=== PATIENT | female | born 1975 | race Caucasian/White ===

== ENCOUNTER → 2020-02-08 | Outpatient (CLI) | payer BC ==
[2020-02-08 09:33] VITALS: BP 127/68; PULSE 91; RESP 18; TEMP 98.4
--- NOTE | 2020-02-08 09:59 | P.HPOB ---
History of Present Illness H&P Date: 02/08/20 Chief Complaint: The patient is here for her routine gynecologic exam and ma mmogram. This is a 45-year-old with an LMP of 2011. The patient has been amenorrheic since her endometrial ablation in 2011. Her is status post vasectomy. The patient is without gynecologic complaints. She denies any significant hot flashes. Review of Systems The patient has gained 8 pounds over the last 2 years. She denies respiratory, cardiac, or G.I. problems. 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 Amenorrhea since her endometrial ablation. 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 She is currently working out of her home. She also helps care for her grandmother who lives nearby. - Past Family History Father Family Medical History: Hyperlipidemia Additional Family Medical History / Comment(s): Paternal grandmother had colon cancer. Mother Family Medical History: Hyperlipidemia Medications and Allergies Home Medications Medication Instructions Recorded Confirmed Type Acetaminophen [Tylenol] 500 mg PO Q4-6H PRN 02/08/20 02/08/20 History Allergies Allergy/AdvReac Type Severity Reaction Status Date / Time No Known Allergies Allergy Unverified 02/08/20 09:27 Exam Vital Signs Temp Pulse Resp BP Pulse Ox 02/08/20 09:28 98.4 F 91 18 127/68 97 Intake and Output 02/07/20 02/08/20 02/08/20 22:59 06:59 14:59 Other: Weight 82.554 kg Height 5 feet 5 inches, weight 182 pounds, BMI 30.3. This is a well-developed well-nourished white female who is alert and oriented times 3 in no acute distress. HEENT: Within normal limits. NECK: Supple without mass or thyromegaly. CHEST AND LUNGS: Clear to auscultation. HEART: Regular rate and rhythm. BREASTS: Are without mass or discharge. AXILLARY EXAM: Negative for adenopathy. BACK: Negative for CVA tenderness. ABDOMEN: Soft, nontender, without palpable masses. PELVIC EXAM: Normal external genitalia. Cervix and vagina appear normal. The cervix is multiparous. There is no unusual discharge. There is no evidence of prolapse. The uterus is midposition, nongravid size and nontender. There are no palpable adnexal masses or tenderness. RECTAL EXAM: negative for mass or tenderness and is negative for occult blood. EXTREMITIES: Nontender. IMPRESSION: 1. 45-year-old female whose is status post vasectomy with normal gynecologic exam. 2. Amenorrhea since her endometrial ablation in 2011. PLAN: 1. Pap smear was performed. 2. Self breast awareness was discussed with the patient. 3. Screening mammogram will be done today. 4. Osteoporosis prevention was discussed. I have stressed the importance of adequate calcium, vitamin D and regular exercise. Recommended amounts of calcium and vitamin D were also discussed. 5. She was advised to return in one year for her annual well woman exam.
--- NOTE | 2020-02-09 08:27 | MM ---
Reason for exam: screening (asymptomatic). Last mammogram was performed 2 years and 6 months ago. History: Patient history of other cancer. Physical Findings: A clinical breast exam by your physician is recommended on an annual basis and results should be correlated with mammographic findings. MG 3D Screening Mammo W/Cad Bilateral CC and MLO view(s) were taken. Prior study comparison: August 05, 2017, bilateral MG screening mammo w CAD. June 25, 2016, bilateral MG screening mammo w CAD. There are scattered fibroglandular densities. There is no discrete abnormality. No significant changes when compared with prior studies. ASSESSMENT: Negative, BI-RAD 1 RECOMMENDATION: Routine screening mammogram of both breasts in 1 year.
--- NOTE | 2020-02-15 17:11 | P.PN ---
Progress Note - Text Progress Note Date: 02/15/20 OUTPATIENT FOLLOW-UP NOTE TEST(S)/RESULTS: test results from 02/08/2020 include negative Pap smear and benign mammogram. METHOD OF NOTIFICATION: a message with these results was left on the patient's voice mail. PATIENT COMMENTS: DIAGNOSIS: negative Pap smear and benign mammogram. DISCUSSION: PLAN: the patient is to return in one year for her annual well woman exam.
== END | disposition home or self-care (01) ==
LOC: WWCWWP 09:19
PROVIDERS: ATTEND Obstetrics & Gynecology
DX: Z12.31 Encounter for screening mammogram for malignant neoplasm of breast (principal)
CPT/HCPCS: 77063; 77067

== ENCOUNTER → 2021-04-18 | Outpatient (CLI) | payer BC ==
[2021-04-18 11:15] VITALS: BP 126/85; PULSE 80; RESP 12; TEMP 98.3
--- NOTE | 2021-04-18 12:03 | P.HPOB ---
History of Present Illness H&P Date: 04/18/21 Chief Complaint: The patient is here for her routine gynecologic exam. This is a 46-year-old with an LMP of 2011. The patient is without gynecologic complaints. She has been amenorrheic since her endometrial ablation in 2011. She denies any significant hot flashes. Her is status post vasectomy. Review of Systems The patient's weight has been stable over the last year. She denies respiratory, cardiac, or G.I. problems. Past Medical History Past Medical History: Cancer, Hyperlipidemia Additional Past Medical History / Comment(s): Basal cell skin cancer on her forehead. 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 Amenorrhea since her endometrial ablation. History of Any Multi-Drug Resistant Organisms: None Reported Past Surgical History: Cholecystectomy, Uterine Ablation Additional Past Surgical History / Comment(s): Skin cancer removed from forehead. Endometrial ablation in 2011. Past Psychological History: No Psychological Hx Reported Smoking Status: Never smoker Past Alcohol Use History: Occasional (5 per week) Past Drug Use History: None Reported Additional History: She has been since 1998 and works for a [employer]. - Past Family History Father Family Medical History: Hyperlipidemia Additional Family Medical History / Comment(s): Paternal grandmother had colon cancer. Mother Family Medical History: Hyperlipidemia Medications and Allergies Home Medications Medication Instructions Recorded Confirmed Type Acetaminophen [Tylenol] 500 mg PO Q4-6H PRN 02/08/20 02/08/20 History Allergies Allergy/AdvReac Type Severity Reaction Status Date / Time No Known Allergies Allergy Unverified 04/18/21 11:16 Exam Vital Signs Temp Pulse Resp BP Pulse Ox 04/18/21 10:28 98.3 F 80 12 126/85 99 Intake and Output 04/17/21 04/18/21 04/18/21 22:59 06:59 14:59 Other: Weight 81.647 kg Height 5 feet 4 inches, weight 180 pounds, BMI 30.9. This is a well-developed well-nourished white female who is alert and oriented times 3 in no acute distress. HEENT: Within normal limits. NECK: Supple without mass or thyromegaly. CHEST AND LUNGS: Clear to auscultation. HEART: Regular rate and rhythm. BREASTS: Are without mass or discharge. AXILLARY EXAM: Negative for adenopathy. BACK: Negative for CVA tenderness. ABDOMEN: Soft, nontender, without palpable masses. PELVIC EXAM: Normal external genitalia. Cervix and vagina appear normal. There is no unusual discharge. There is no evidence of prolapse. The uterus is midposition, nongravid size and nontender. There are no palpable adnexal masses or tenderness. RECTAL EXAM: negative for mass or tenderness and is negative for occult blood. EXTREMITIES: Nontender. IMPRESSION: 1. 46-year-old female whose is status post vasectomy with normal gynecologic exam. 2. The patient has been amenorrheic since her 2011 endometrial ablation. Probably premenopausal based on lack of vasomotor symptoms. PLAN: 1. Pap smear was deferred since she had a normal one on 02/08/2020. 2. Self breast awareness was discussed with the patient. We have also discussed symptoms associated with inflammatory breast cancer. 3. Mammogram was recommended within the next year and the order slip was given to the patient for this. 4. Colorectal cancer screening was discussed. She states screening was recommended by her PCP and she will look into this through her PCP. 5. She was advised to return in one year for her annual well woman exam.
== END ==
LOC: WWCWWP 10:18
PROVIDERS: ATTEND Obstetrics & Gynecology
DX: Z01.419 Encounter for gynecological examination (general) (routine) without abnormal findings (principal); N91.2 Amenorrhea, unspecified; E78.5 Hyperlipidemia, unspecified

== ENCOUNTER → 2021-05-29 | Outpatient (CLI) | payer BC ==
--- NOTE | 2021-05-30 13:32 | MM ---
Reason for exam: screening (asymptomatic). Last mammogram was performed 1 year and 4 months ago. History: Patient history of other cancer. Physical Findings: A clinical breast exam by your physician is recommended on an annual basis and results should be correlated with mammographic findings. MG 3D Screening Mammo W/Cad Bilateral CC and MLO view(s) were taken. Prior study comparison: February 08, 2020, bilateral MG 3d screening mammo w/cad. June 25, 2016, bilateral MG screening mammo w CAD. There are scattered fibroglandular densities. No significant changes when compared with prior studies. ASSESSMENT: Benign, BI-RAD 2 RECOMMENDATION: Routine screening mammogram of both breasts in 1 year.
== END | disposition home or self-care (01) ==
LOC: RADMAMWWP 07:30
PROVIDERS: ATTEND Obstetrics & Gynecology
DX: Z12.31 Encounter for screening mammogram for malignant neoplasm of breast (principal); Z85.89 Personal history of malignant neoplasm of other organs and systems
CPT/HCPCS: 77063; 77067

== ENCOUNTER → 2022-12-06 | Outpatient (CLI) | payer BC ==
--- NOTE | 2022-12-06 20:24 | CA ---
Transthoracic Echo Report Name: Kelsy Diaz Age: 47 Gender: F : 1975 Exam Date: 12/06/2022 16:02 Exam Location: [facility] Ht (in): 64 Wt (lb): 175 Ordering Physician: Lizeth Spears MD Attending/Referring Phys: Kortney Ace [facility] Transitional Nurse Daya Becerril RDCS Procedure CPT: Indications: R07.9,R60.1 Cardiac Hx: Technical Quality: Fair Contrast 1: Total Dose (mL): Contrast 2: Total Dose (mL): MEASUREMENTS (Male / Female) Normal Values 2D ECHO LV Diastolic Diameter PLAX 3.8 cm 4.2 - 5.9 / 3.9 - 5.3 cm LV Systolic Diameter PLAX 2.7 cm IVS Diastolic Thickness 1.2 cm 0.6 - 1.0 / 0.6 - 0.9 cm LVPW Diastolic Thickness 1.2 cm 0.6 - 1.0 / 0.6 - 0.9 cm LV Relative Wall Thickness 0.6 RV Internal Dim ED PLAX 2.8 cm LA Systolic Diameter LX 3.2 cm 3.0 - 4.0 / 2.7 - 3.8 cm LV Diastolic Volume MOD 4C 66.1 cm??? LV Systolic Volume MOD 4C 30.0 cm??? LV Ejection Fraction MOD 4C 54.6 % LV Diastolic Length 4C 7.8 cm LV Systolic Length 4C 6.5 cm LV Diastolic Volume MOD 2C 32.3 cm??? LV Systolic Volume MOD 2C 13.4 cm??? LV Ejection Fraction MOD 2C 58.5 % LV Diastolic Length 2C 6.9 cm LV Systolic Length 2C 5.8 cm LA Volume 35.8 cm??? 18 - 58 / 22 - 52 cm??? M-MODE Aortic Root Diameter MM 2.9 cm MV E Point Septal Separation 0.6 cm AV Cusp Separation MM 2.2 cm DOPPLER AV Peak Velocity 132.7 cm/s AV Peak Gradient 7.0 mmHg MV Area PHT 4.8 cm??? Mitral E Point Velocity 75.7 cm/s Mitral A Point Velocity 64.0 cm/s Mitral E to A Ratio 1.2 MV Deceleration Time 159.4 ms MV E' Velocity 6.8 cm/s Mitral E to MV E' Ratio 11.1 TR Peak Velocity 204.3 cm/s TR Peak Gradient 16.7 mmHg Right Ventricular Systolic Press 21.7 mmHg FINDINGS Left Ventricle Left ventricular ejection fraction is estimated at 60-65 %. Small left ventricular cavity. Mildly increased septal wall thickness. Mildly increased posterior wall thickness. No obvious regional wall motion abnormalities. Right Ventricle Normal right ventricular size and function. Right ventricular systolic pressure within normal limits. Right Atrium Normal right atrial size. Left Atrium Normal left atrial size. Mitral Valve Structurally normal mitral valve. No mitral stenosis, regurgitation or prolapse. Aortic Valve Trileaflet aortic valve. No aortic valve stenosis or regurgitation. Tricuspid Valve Structurally normal tricuspid valve. Mild tricuspid regurgitation. Pulmonic Valve Structurally normal pulmonic valve. No pulmonic regurgitation. Pericardium Normal pericardium. No pericardial effusion. Aorta Normal size aortic root and proximal ascending aorta. CONCLUSIONS LVH with preserved systolic function Previewed by: Dr. Brendan Garcia MD (Electronically Signed) Final Date: 06 December 2022 20:24
== END | disposition home or self-care (01) ==
LOC: RADECHMAIN 15:48
PROVIDERS: ATTEND Family Medicine
DX: R07.9 Chest pain, unspecified (principal); R60.1 Generalized edema
CPT/HCPCS: 93306

== ENCOUNTER → 2023-01-01 | Outpatient (CLI) | payer BC ==
[2023-01-01 11:40] VITALS: BP 131/85; PULSE 73; RESP 12; TEMP 98.1
--- NOTE | 2023-01-01 12:38 | P.HPOB ---
History of Present Illness H&P Date: 01/01/23 Chief Complaint: The patient is here for her routine gynecologic exam and ma mmogram. This is a 47-year-old with an LMP of 2011. Her is status post vasectomy and she is status post endometrial ablation. She has been amenorrheic since her endometrial ablation in 2011. She states she started having hot flashes about 6 months ago. She is otherwise without gynecologic complaints. Review of Systems The patient's weight has been stable over the last year. She denies respiratory, cardiac, or G.I. problems. Past Medical History Past Medical History: Cancer, GERD/Reflux, Hyperlipidemia Additional Past Medical History / Comment(s): Basal cell skin cancer on her forehead. 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 Amenorrhea since her endometrial ablation. History of Any Multi-Drug Resistant Organisms: None Reported Past Surgical History: Cholecystectomy, Uterine Ablation Additional Past Surgical History / Comment(s): Skin cancer removed from forehead. Endometrial ablation in 2011. 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 - Past Family History Father Family Medical History: Hyperlipidemia Additional Family Medical History / Comment(s): Paternal grandmother had colon cancer. Mother Family Medical History: Hyperlipidemia Medications and Allergies Home Medications Medication Instructions Recorded Confirmed Type Omeprazole 20 mg PO DAILY 01/01/23 01/01/23 History Rosuvastatin [Crestor] 10 mg PO DAILY 01/01/23 01/01/23 History Allergies Allergy/AdvReac Type Severity Reaction Status Date / Time No Known Allergies Allergy Unverified 01/01/23 11:35 Exam Vital Signs Temp Pulse Resp BP Pulse Ox 01/01/23 11:37 98.1 F 73 12 131/85 99 Intake and Output 12/31/22 01/01/23 01/01/23 22:59 06:59 14:59 Other: Weight 82.554 kg Height 5 feet 4-1/2 inches, weight 182 pounds, BMI 30.8. This is a well-developed well-nourished white female who is alert and oriented times 3 in no acute distress. HEENT: Within normal limits. NECK: Supple without mass or thyromegaly. CHEST AND LUNGS: Clear to auscultation. HEART: Regular rate and rhythm. BREASTS: Are without mass or discharge. AXILLARY EXAM: Negative for adenopathy. BACK: Negative for CVA tenderness. ABDOMEN: Soft, nontender, without palpable masses. PELVIC EXAM: Normal external genitalia. A benign-appearing flap mole is noted on the left aspect of the mons pubis and measures partially 9 mm in diameter. 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 Cervix and vagina appear normal. There is no unusual discharge. There is no evidence of prolapse. The uterus is midposition, nongravid size and nontender. There are no palpable adnexal masses or tenderness. RECTAL EXAM: negative for mass or tenderness and is negative for occult blood. EXTREMITIES: Nontender. IMPRESSION: 1. 47-year-old early perimenopausal female who has been amenorrheic since her 2012 endometrial ablation, with normal gynecologic exam. 2. Her is status post vasectomy. PLAN: 1. Pap smear cotest was performed. 2. Self breast awareness was discussed with the patient. We have also discussed symptoms associated with inflammatory breast cancer. 3. Screening mammogram will be done today. 4. Osteoporosis prevention was discussed. I have stressed the importance of adequate calcium, vitamin D and regular exercise. Recommended amounts of calcium and vitamin D were also discussed. 5. Colorectal cancer screening was discussed with the patient. She recently did a Cologuard test through her PCP. 6. 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 7. She was advised to return in one year for her annual well woman exam.
--- NOTE | 2023-01-02 22:36 | MM ---
Reason for Exam: Screening (asymptomatic). Last mammogram was performed 1 year(s) and 7 month(s) ago. Patient History: Menarche at age 12. First Full-Term at age 27. Other cancer. Risk Values: Mariia 5 year model risk: 1.0%. NCI Lifetime model risk: 11.4%. Prior Study Comparison: 08/05/2017 Bilateral Screening Mammogram, [facility]. 02/08/2020 Bilateral Screening Mammogram, [facility]. 05/29/2021 Bilateral Screening Mammogram, [facility]. Tissue Density: There are scattered fibroglandular densities. Findings: Analyzed By CAD. Pattern appears symmetrical and stable No suspicious groups of microcalcifications, spiculated or lobular masses, architectural distortion or other secondary signs of malignancy are mammographically apparent. Overall Assessment: Benign, BI-RAD 2 Management: Screening Mammogram of both breasts in 1 year. A negative mammogram report should not preclude additional follow up of suspicious palpable abnormalities. Patient should continue monthly self breast exam. A clinical breast exam by your physician is recommended on an annual basis and results should be correlated with mammographic findings. Electronically signed and approved by: Edwin Chou D.O. Radiologis
== END ==
LOC: WWCWWP 11:16
PROVIDERS: ATTEND Obstetrics & Gynecology
DX: Z12.31 Encounter for screening mammogram for malignant neoplasm of breast (principal); Z01.419 Encounter for gynecological examination (general) (routine) without abnormal findings; Z98.51 Tubal ligation status; K21.9 Gastro-esophageal reflux disease without esophagitis; E78.5 Hyperlipidemia, unspecified
CPT/HCPCS: 77063; 77067

== ENCOUNTER → 2024-02-24 | Outpatient (CLI) | payer BC ==
[2024-02-24 15:29] VITALS: BP 122/76; PULSE 74; RESP 16; TEMP 98.4
--- NOTE | 2024-02-24 16:16 | P.HPOB ---
History of Present Illness H&P Date: 02/24/24 Chief Complaint: The patient is here for her routine gynecologic exam and ma mmogram. This is a 49-year-old with an LMP of 2011. Her is status post vasectomy and she is status post endometrial ablation. She has been amenorrheic since her ablation in 2011. She does have intermittent hot flashes for the past 1-1/2 years. She is otherwise without gynecologic complaints and denies any vaginal bleeding. Review of Systems The patient has gained 4 pounds over the last year. She denies respiratory, cardiac, or G.I. problems. Past Medical History Past Medical History: Cancer, GERD/Reflux, Hyperlipidemia Additional Past Medical History / Comment(s): Basal cell skin cancer on her forehead. 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 Amenorrhea since her endometrial ablation. History of Any Multi-Drug Resistant Organisms: None Reported Past Surgical History: Cholecystectomy, Uterine Ablation Additional Past Surgical History / Comment(s): Skin cancer removed from forehead. Endometrial ablation in 2011. 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 - Past Family History Father Family Medical History: Hyperlipidemia Additional Family Medical History / Comment(s): Paternal grandmother had colon cancer. Mother Family Medical History: Hyperlipidemia Medications and Allergies Home Medications Medication Instructions Recorded Confirmed Type Rosuvastatin [Crestor] 10 mg PO DAILY 01/01/23 02/24/24 History Cholecalciferol [Vitamin D3 (25 1 tab PO DAILY 02/24/24 02/24/24 History Mcg = 1000 Iu)] Allergies Allergy/AdvReac Type Severity Reaction Status Date / Time No Known Allergies Allergy Unverified 02/24/24 15:25 Exam Vital Signs Temp Pulse Resp BP Pulse Ox 02/24/24 15:27 98.4 F 74 16 122/76 98 Intake and Output 02/24/24 02/24/24 02/24/24 06:59 14:59 22:59 Other: Weight 84.368 kg Height 5 feet 5 inches, weight 186 pounds, BMI 31.0. This is a well-developed well-nourished 9 female who is alert and oriented times 3 in no acute distress. HEENT: Within normal limits. NECK: Supple without mass or thyromegaly. CHEST AND LUNGS: Clear to auscultation. HEART: Regular rate and rhythm. BREASTS: Are without mass or discharge. AXILLARY EXAM: Negative for adenopathy. BACK: Negative for CVA tenderness. ABDOMEN: Soft, nontender, without palpable masses. PELVIC EXAM: Normal external genitalia. Cervix and vagina appear normal with minimal atrophy. There is no unusual discharge. There is no evidence of prolapse. The uterus is midposition, nongravid size and nontender. There are no palpable adnexal masses or tenderness. RECTAL EXAM: Rectovaginal exam is negative for mass or tenderness and is negative for occult blood. EXTREMITIES: Nontender. IMPRESSION: 1. 49-year-old perimenopausal female whose is status post vasectomy, with normal gynecologic exam. 2. Amenorrhea since her 2011 endometrial ablation. PLAN: 1. Pap smear was deferred since she had a negative Pap smear cotest on 01/01/2023 2. Self breast awareness was discussed with the patient. We have also discussed symptoms associated with inflammatory breast cancer. 3. Screening mammogram was done today. 4. Osteoporosis prevention was discussed. I have stressed the importance of adequate calcium, vitamin D and regular exercise. Recommended amounts of calcium and vitamin D were also discussed. 5. Patient has had colorectal cancer screening done with Cologuard testing. She will continue to do this through her PCP. 6. She was advised to return in one year for her annual well woman exam.
== END ==
LOC: WWCWWP 15:07
PROVIDERS: ATTEND Obstetrics & Gynecology
DX: Z12.31 Encounter for screening mammogram for malignant neoplasm of breast (principal); N91.2 Amenorrhea, unspecified; Z78.0 Asymptomatic menopausal state; Z98.890 Other specified postprocedural states
CPT/HCPCS: 77063; 77067